=== PATIENT | female | born 1970 | race Caucasian/White ===

== ENCOUNTER 2020-11-27 12:27 | Inpatient (IN) | payer BC, SELFPAY ==
[2020-11-27] VITALS (9 sets, daily range): BP systolic 110–127; BP diastolic 77–88; PULSE 82–89; RESP 16–20; TEMP 36.6–36.9; O2SAT 96–99; BMI 22.4
--- NOTE | 2020-11-27 12:53 | XR_ITS ---
WS: [id number] LEFT FEMUR: 2 VIEW(S) TECHNIQUE: AP and lateral. HISTORY: pain/fall COMPARISON: None available. Acute LEFT subcapital hip fracture slight impaction. The remaining femur is negative. Soft tissues are unremarkable. No foreign body or calcification. XR/XR femur LT min 2V* [id number] Impression: Acute LEFT subcapital hip fracture.
--- NOTE | 2020-11-27 12:53 | XR_ITS ---
WS: [id number] LEFT KNEE: 3 VIEW(S) TECHNIQUE: AP, oblique(s) and lateral. HISTORY: fall/pain COMPARISON: None available. No fracture or dislocation. No joint space narrowing or osteophytes. No joint effusion. No soft tissue abnormality. XR/XR knee LT 3V* [id number] IMPRESSION: Normal LEFT knee.
--- NOTE | 2020-11-27 12:53 | XR_ITS ---
WS: [id number] LEFT HIP HISTORY: pain after fall COMPARISON: None available. LEFT hip: Acute nondisplaced LEFT subcapital hip fracture. Very slight impaction. Mild narrowing of t he hip joint from arthritis. Mild LEFT sacroiliitis. XR/XR hip LT 2-3V wo/w pel* [id number] IMPRESSION: 1. Acute nondisplaced LEFT subcapital hip fracture. 2. Mild LEFT hip joint arthritis.
--- NOTE | 2020-11-27 13:31 | ED_ITS ---
HPI - Fall General: Chief Complaint: Fall Stated Complaint: FALL/ LEG PAIN Time Seen by Provider: 11/27/20 12:43 History of Present Illness: HPI Narrative: 50-year-old female presents ER via EMS. She slipped on some ice had been tracked into the house by her dog she landed on her left hip. She can move some but she is complaining of significant pain both at the hip and at the knee. She denies striking her head no other injuries no loss of consciousness MD complaint: fall Onset (ago): minute(s) Fall from: standing Fall witnessed: no Place fall occurred: home Loss of consciousness: None Prolonged down time: no Symptoms prior to fall: none Context: tripped/slipped Location of injury: other (Left hip) Location of injury - extremities: Left: knee Severity: moderate Associated symptoms-after fall: Denies abdominal pain or chest pain Review of Systems Const: Denies: fever(s), chills, body aches, change in appetite, fatigue or malaise ENMT: Denies: throat pain, ear or mastoid pain, nasal discharge or nasal congestion Card: Denies: chest pain, edema, dyspnea on exertion or orthopnea Resp: Denies: dyspnea, productive cough or non-productive cough GI: Denies: abdominal pain, nausea, vomiting, hematemesis, coffee ground emesis, diarrhea, constipation, bloating, hematochezia or melena : Denies: flank pain, difficulty voiding, dysuria, urinary frequency or urinary urgency Skin/Breast: Denies: rash or pruritus PFSH ED PFSH: Medical History Asthma HTN (hypertension) Surgical History History of Family History Other Diabetes Hypertension Social History Smoking and tobacco status: never smoked Alcohol intake: never Substance/Drug Use: never Lives independently: Yes Household members: spouse Marital status: Current occupational status: employed Current occupation: [employer] supervisor Female Reproductive History: Date of last menstrual period: 03/12/20 Physical Exam Const: COMMON NORMALS: no acute distress GENERAL APPEARANCE: cooperative and comfortable ORIENTATION/CONSCIOUSNESS: Yes awake, Yes oriented to person, Yes oriented to place and Yes oriented to time HENMT: COMMON NORMALS: normocephalic, atraumatic and hearing grossly normal bilaterally HEAD & SCALP: normocephalic and atraumatic Eye: COMMON NORMALS: Equal, round and reactive pupils present, EOMs intact bilaterally, conjunctivae normal and no scleral icterus CONJUNCTIVA: Yes co njunctivae normal PUPIL: Yes Equal, round and reactive pupils present Neck/C-Spine: COMMON NORMALS: full ROM, no lymphadenopathy, supple and no JVD Lymph: LYMPHATIC: no lymphadenopathy noted and no lymphedema noted Resp: COMMON NORMALS: normal respiratory effort, No retractions, No use of accessory muscles and clear to auscultation bilaterally AUSCULTATION: clear to auscultation bilaterally Cardio: COMMON NORMALS: no JVD, regular rate, regular rhythm and No murmurs present (Cardio) RATE: regular rate RHYTHM: regular rhythm GI: COMMON NORMALS: Soft to palpation and No hepatosplenomegaly present AUSCULTATION: Yes normoactive bowel sounds PALPATION: Yes Soft to palpation, No Tenderness to palpation present (GI), No Guarding due to palpation present (GI) and Yes No hepatosplenomegaly present Extremity: NARRATIVE EXTREMITY EXAM: Pain of the right hip with mild external rotation. Neuro: SENSORIUM/ORIENTATION: Yes oriented to person, Yes oriented to place and Yes oriented to time Skin: COMMON NORMALS: no rashes or lesions noted GENERAL SKIN EXAM: no rashes or lesions noted Course Vital Signs: Vital signs: Vital Signs Temperature 99.2 F 11/28/20 14:35 Pulse Rate 85 11/28/20 14:35 Respiratory Rate 18 11/28/20 14:35 Blood Pressure 102/72 11/28/20 14:35 Pulse Oximetry 94 11/28/20 14:35 MDM - Fall MDM Narrative: Medical decision making narrative: Admit for orthopedic evaluation and open reduction internal fixation of the fracture. Discussed with patient also courtney Dr. Moreira and hospitalist orders are written. Lab Data: Labs: Lab Results 11/27/20 11/27/20 Range/Units 14:26 14:26 WBC 20.0 H (4.0-10.0) 10^3/ uL RBC 4.90 (4.1-5.3) 10^6/u L Hgb 14.8 (11.5-15.3) g/dL Hct 45.7 (37.0-47.0) % MCV 93.3 (81-99) fL MCH 30.2 (28.0-34.0) pg MCHC 32.4 (30.0-36.0) g/dL RDW 14.2 (12.1-15.1) % Plt Count 391 (130-400) 10^3/c mm MPV 9.3 (7.4-10.4) fL Neut % (Auto) 90.6 % Lymph % (Auto) 4.9 % [place] % (Auto) 3.7 % Eos % (Auto) 0.1 % Baso % (Auto) 0.2 % Neut # (Auto) 18.10 H (1.8-7.7) 10^3/u L Lymph # (Auto) 1.0 (0.8-4.8) 10^3/u L [place] # (Auto) 0.7 (0.2-0.9) 10^3/u L Eos # (Auto) 0.0 (0.0-0.8) 10^3/u L Baso # (Auto) 0.0 (0.0-0.1) 10^3/u L Nucleated RBC % (a uto) 0 % Nucleated RBCs # 0.0 /100WBC Sodium 140 (136-145) mmol/L Potassium 3.3 L (3.5-5.1) mmol/L Chloride 104 (98-107) mmol/L Carbon Dioxide 25 (22-29) mmol/L Anion Gap 14.3 (5-19) BUN 9 (6-20) mg/dL Creatinine 0.6 (0.5-0.9) mg/dL GFR Calculation 105.8 (90-130) mL/min Glucose 108 (65-115) mg/dL Calculated Osmolal ity 289 (285-295) mOsm/k g Calcium 10.0 (8.5-10.5) mg/dL Total Bilirubin 0.4 (0.15-1.2) mg/dL AST 22 (0-32) U/L ALT 25 (0-33) U/L Alkaline Phosphata se 133 H (35-105) IU/L Total Protein 7.5 (6.6-8.7) g/dL Albumin 4.6 (3.5-5.2) g/dL Globulin 2.9 (1.3-4.6) g/dL Discharge Plan Discharge Admit Provider: Vini Carbajal Clinical Impression: Subcapital fracture of left hip, HTN (hypertension), Asthma Condition: Stable Discharge Orders: Discharge Order (Routine); Ordered 11/28/20 Ordered By: Vini Carbajal Discharge Diet: Cardiac Discharge Activity: Increase activity as tolerated, Limit activity as instructed and As per PT/OT instructions Coding Level of Care Code ED Med Spec for David Souza
--- NOTE | 2020-11-27 13:41 | XR_ITS ---
WS: [id number] PORTABLE CHEST HISTORY: dyspnea/cough COMPARISON: None available. Lungs are clear and well expanded. No pleural effusion or pneumothorax. Cardiac size: Normal. Mediastinum/Aorta: Normal mediastinum. No osseous abnormality seen. XR/XR chest 1V portable [id number] IMPRESSION: Unremarkable portable chest.
--- NOTE | 2020-11-27 13:41 | ECG_ITS ---
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
--- NOTE | 2020-11-27 14:12 | PC.NURSE ---
radiology at bedside.
[2020-11-27 14:36] LABS: Basophils % 0.2 %; Eosinophils % 0.1 %; Hematocrit 45.7 % (37.0-47.0); Hemoglobin 14.8 g/dL (11.5-15.3); Lymphocytes % 4.9 %; Mean Corpuscular HGB Conc 32.4 g/dL (30.0-36.0); Mean Corpuscular Hemoglobin 30.2 pg (28.0-34.0); Mean Corpuscular Volume 93.3 fL (81-99); Mean Platelet Volume 9.3 fL (7.4-10.4); Monocytes # 0.7 10^3/uL (0.2-0.9); Monocytes % 3.7 %; Neutrophils % 90.6 %; Nucleated Red Blood Cells % 0 %; Platelet Count 391 10^3/cmm (130-400); Red Cell Distribution Width 14.2 % (12.1-15.1)
[2020-11-27] MEDS: ondansetron 2 mg/ML SDV 2 mL 4 MG IVP ×2 (14:42→18:51)
[2020-11-27] MEDS: morphine 4 mg/mL SDV 1 mL IVP (14:43)
[2020-11-27 14:59] LABS: Alanine Aminotransferase 25 U/L (0-33); Albumin Level 4.6 g/dL (3.5-5.2); Alkaline Phosphatase 133 IU/L (35-105); Anion Gap 14.3 (5-19); Aspartate Amino Transferase 22 U/L (0-32); Blood Urea Nitrogen 9 mg/dL (6-20); Carbon Dioxide 25 mmol/L (22-29); Chloride 104 mmol/L (98-107); Globulin 2.9 g/dL (1.3-4.6); Glomerular Filtration Rate 105.8 mL/min (90-130); Glucose 108 mg/dL (65-115); Osmolality Calculated 289 mOsm/kg (285-295); Potassium 3.3 mmol/L (3.5-5.1); Sodium 140 mmol/L (136-145); Total Bilirubin 0.4 mg/dL (0.15-1.2); Total Protein 7.5 g/dL (6.6-8.7)
--- NOTE | 2020-11-27 16:40 | PM.HP ---
Providers/Chief Complaint Admitting Physician: Vini Carbajal Primary Care Provider: Karly Briscoe, Chief Complaint: FALL/ LEG PAIN History of Present Illness Very pleasant 50-year-old lady with history of asthma, HTN, at baseline state of health, slipped down walking some stairs 3 weeks ago, landing on her left leg/hip. This was sore for a while, but she was able to ambulate, and symptoms gradually were improving. She then today placed some ice cubes at home for her dogs, and later walking in the same area slipped on some ice water again landing on the same leg/hip. In ER she is found to have acute left subcapital hip fracture. She is being admitted for assessment and repair of this. Review of Systems Const: Denies: fever(s), chills, body aches or malaise Eyes: Denies: change in vision or eye redness ENMT: Denies: throat pain, oral sores or ear or mastoid pain Card: Denies: chest pain, edema, pre-syncope or dyspnea on exertion Resp: Denies: dyspnea, productive cough, change in phlegm color or hemoptysis GI: Denies: abdominal pain, nausea, vomiting, diarrhea, constipation, hematochezia or melena : Denies: flank pain, urinary frequency or hematuria Musc: Denies: back pain, joint swelling or joint redness Skin/Breast: Denies: rash, sores or new lesions Neuro: Denies: headache(s), numbness in extremities, weakness in extremities, dizziness, confusion or seizure-like activity Endo: Denies: polyuria or polydipsia Jonn/Lymph: Denies: easy bleeding or purpura All/Imm: Denies: urticaria, throat swelling or tongue swelling Medications/Allergies Home Medications Medication Instructions Recorded Confirmed Last Taken Type albuterol sulfate [ProAir HFA] 2 puff INHALATION Q6H PRN 11/27/20 11/27/20 Unknown History budesonide-formoterol [Symbicort] 2 puff INHALATION Q12H 11/27/20 11/27/20 11/27/20 History buspirone See Rx Instructions .ROUTE .COMPLEX 11/27/20 11/27/20 11/27/20 History hydrochlorothiazide 12.5 mg PO DAILY@0700 0211/27/20 11/27/20 History lisinopril 10 mg PO DAILY@0700 11/27/20 11/27/20 11/27/20 History zafirlukast 20 mg PO BID@0700,1900 11/27/20 11/27/20 11/27/20 History Allergies Allergy/AdvReac Type Severity Reaction Status Date / Time azithromycin Allergy Unknown Verified 11/27/20 15:17 PFSH Acute PFSH: Medical History Asthma HTN (hypertension) Surgical History (Updated 11/27/20 @ 16:42 by Vini Carbajal MD) History of Family History Other Diabetes Hypertension Social History Smoking and tobacco status: never smoked Alcohol intake: never Substance/Drug Use: never Lives independently: Yes Household members: spouse Marital status: Current occupational status: employed Current occupation: [employer] Female Reproductive History: Date of last menstrual period: 03/12/20 Vitals/I&O/Wt Last Vital Signs Temp 98.4 F 11/27/20 12:34 Pulse 84 11/27/20 13:03 Resp 18 11/27/20 14:43 BP 126/84 11/27/20 13:03 Pulse Ox 99 11/27/20 13:03 Weight last 48 hrs Weight 63.049 kg Physical Exam Narrative: EXAM NARRATIVE: accompanying her in her room. Const: COMMON NORMALS: no acute distress and patient oriented x3 HENMT: COMMON NORMALS: oropharynx normal Neck/C-Spine: COMMON NORMALS: no JVD Resp: COMMON NORMALS: normal respiratory effort and clear to auscultation bilaterally AUSCULTATION: clear to auscultation bilaterally Cardio: COMMON NORMALS: no JVD, regular rhythm, S1 normal heart sound present, S2 normal heart sound present and No murmurs present (Cardio) RHYTHM: regular rhythm HEART SOUNDS: S1 normal heart sound present and S2 normal heart sound present GI: COMMON NORMALS: Normal to inspection, nondistended, normoactive bowel sounds present, Soft to palpation and non-tender PALPATION: Yes Soft to palpation Extremity: COMMON NORMALS: no joint enlargement and no pedal edema OTHER: Left hip, did not notice much swelling, bruising, no erythema. She has pain on movement. Left lower extremity perfused. Neuro: COMMON NORMALS: patient oriented x3 and moves all extremities Skin: COMMON NORMALS: no rashes or lesions noted GENERAL SKIN EXAM: no rashes or lesions noted Urinary Catheter Management^: [place]: Cath Placed During This Visit: yes Urinary Catheter Date of Insertion: 11/27/20 Urinary Catheter Time of Insertion: 16: Data : 11/27/20 14:26 11/27/20 14:26 A&P Assessment and plan (1) Subcapital fracture of left hip: Orthopedic surgery planning repair likely tomorrow. Should have average risk of surgery. Stable asthma without exacerbation. She is active, ambulates without issue, takes flights of stairs. She is wanting to have her hip repaired. N.p.o. after midnight. With anticipated surgery, requesting COVID-19 PCR. Status: Acute (2) Asthma: Continue inhalers. History of steroid use in the past. Follow-up with PCP. Discussed with her to consider bone mineral density scanning after recovers from acute episode of illness. Status: Acute (3) HTN (hypertension): Monitor blood pressure. For now hold off HCTZ, lisinopril. Status: Acute Additional A&P Information Mild hypokalemia: 20 mg potassium by mouth. Attestations Medical Necessity Statement*: Admission of over 2 midnights is going to be needed for assessment of management of left hip fracture. Coding Level of Care Code Acute Licensed Audiologist for David Souza Diagnoses Subcapital fracture of left hip S72.012A Asthma J45.909 HTN (hypertension) I10
[2020-11-27 16:56] LABS: Add Urine Microscopic? NO
[2020-11-27 17:04] LABS: Bilirubin Urine Neg (Negative); Blood Urine Neg (Negative); Glucose Urine UA Norm (Normal); Ketones Urine Negative (Negative); Leukocyte Esterase Urine Negative (Negative); Nitrate Urine Negative (Negative); Protein Urine Neg (Negative); Specific Gravity, Urine 1.005 (1.005-1.030); Urine Appearance Clear (CLEAR); Urine Color Yellow (Yellow); Urobilinogen Urine Norm (Negative); pH Urine 6 (5-7)
[2020-11-27] MEDS: D5-NS 0.45% + KCL 20 mEq 20 MEQ/1,000 ML BAG 100 MEQ IV (18:20)
[2020-11-27] MEDS: potassium chloride ER 20 mEq Tablet PO (18:21)
[2020-11-27] MEDS: morphine 4 mg/mL SDV 1 mL 2 MG IVP (18:51)
[2020-11-28] VITALS (14 sets, daily range): BP systolic 102–129; BP diastolic 66–79; PULSE 65–114; RESP 16–88; TEMP 36.4–37.6; O2SAT 94–100
--- NOTE | 2020-11-28 | XR_ITS ---
WS: [id number] C-ARM RADIOGRAPHS LEFT HIP; 3 IMAGES HISTORY: OR PICS COMPARISON: 11/27/2020 3 screws stabilize a LEFT femoral neck fracture. Femoral fracture in good position and alignment. XR/XR hip LT 2-3V wo/w pel* [id number] IMPRESSION: Intraoperative imaging during screw fixation femoral neck fracture.
--- NOTE | 2020-11-28 | SCC_ITS ---
Procedure Done: Left hip closed reduction percutaneous pinning 82 seconds of fluoroscopic guidance, for a cumulative dose of 12.09 mGy, was provided to Dr. Moreira by the radiology department. C-arm images of the LEFT hip were saved for the patient's permanent record. [facility]
[2020-11-28] MEDS: D5-NS 0.45% + KCL 20 mEq 20 MEQ/1,000 ML BAG 100 MEQ IV (04:46)
[2020-11-28 06:17] LABS: Basophils % 0.3 %; Eosinophils % 0.5 %; Hematocrit 42.5 % (37.0-47.0); Hemoglobin 13.4 g/dL (11.5-15.3); Lymphocytes # 1.7 10^3/uL (0.8-4.8); Lymphocytes % 19.4 %; Mean Corpuscular HGB Conc 31.5 g/dL (30.0-36.0); Mean Corpuscular Hemoglobin 30.5 pg (28.0-34.0); Mean Corpuscular Volume 96.6 fL (81-99); Mean Platelet Volume 9.6 fL (7.4-10.4); Monocytes # 0.6 10^3/uL (0.2-0.9); Monocytes % 7.4 %; Neutrophils # 6.22 10^3/uL (1.8-7.7); Neutrophils % 71.9 %; Nucleated Red Blood Cells % 0 %; Platelet Count 328 10^3/cmm (130-400); Red Cell Distribution Width 14.5 % (12.1-15.1); White Blood Count 8.7 10^3/uL (4.0-10.0)
[2020-11-28 06:34] LABS: Alanine Aminotransferase 20 U/L (0-33); Albumin Level 3.8 g/dL (3.5-5.2); Alkaline Phosphatase 105 IU/L (35-105); Anion Gap 11.7 (5-19); Aspartate Amino Transferase 16 U/L (0-32); Blood Urea Nitrogen 6 mg/dL (6-20); Calcium 8.8 mg/dL (8.5-10.5); Carbon Dioxide 27 mmol/L (22-29); Chloride 104 mmol/L (98-107); Globulin 2.4 g/dL (1.3-4.6); Glomerular Filtration Rate 88.6 mL/min (90-130); Glucose 106 mg/dL (65-115); Osmolality Calculated 286 mOsm/kg (285-295); Potassium 3.7 mmol/L (3.5-5.1); Sodium 139 mmol/L (136-145); Total Bilirubin 0.7 mg/dL (0.15-1.2); Total Protein 6.2 g/dL (6.6-8.7)
--- NOTE | 2020-11-28 06:50 | PM.CONSULT ---
Providers/Reason For Consult Consulting Physican/Specialty*: orthopedics Reason for Consult*: hip fx Attending Physician: Vini Carbajal Primary Care Provider: Karly Briscoe, History of Present Illness History of Present Illness Araceli Parks is a 50 year old female with history of asthma, HTN, at baseline state of health, slipped down walking some stairs 3 weeks ago, landing on her left leg/hip. This was sore for a while, but she was able to ambulate, and symptoms gradually were improving. She then today placed some ice cubes at home for her dogs, and later walking in the same area slipped on some ice water again landing on the same leg/hip. In ER she is found to have acute left subcapital hip fracture. Review of Systems Const: Denies: fever(s), chills, body aches or malaise Eyes: Denies: change in vision or eye redness ENMT: Denies: throat pain, oral sores or ear or mastoid pain Card: Denies: chest pain, edema, pre-syncope or dyspnea on exertion Resp: Denies: dyspnea, productive cough, change in phlegm color or hemoptysis GI: Denies: abdominal pain, nausea, vomiting, diarrhea, constipation, hematochezia or melena : Denies: flank pain, urinary frequency or hematuria Musc: Denies: back pain, joint swelling or joint redness Skin/Breast: Denies: rash, sores or new lesions Neuro: Denies: headache(s), numbness in extremities, weakness in extremities, dizziness, confusion or seizure-like activity Endo: Denies: polyuria or polydipsia Jonn/Lymph: Denies: easy bleeding or purpura All/Imm: Denies: urticaria, throat swelling or tongue swelling Meds/Allergies Home Medications and Allergies Home Medications Medication Instructions Recorded Confirmed Last Taken Type albuterol sulfate [ProAir HFA] 2 puff INHALATION Q6H PRN 11/27/20 11/27/20 Unknown History budesonide-formoterol [Symbicort] 2 puff INHALATION Q12H 11/27/20 11/27/20 11/27/20 History buspirone See Rx Instructions .ROUTE .COMPLEX 11/27/20 11/27/20 11/27/20 History hydrochlorothiazide 12.5 mg PO DAILY@0700 02/18/21 02/18/21 02/18/21 History lisinopril 10 mg PO DAILY@0700 11/27/20 11/27/20 11/27/20 History zafirlukast 20 mg PO BID@0700,1900 11/27/20 11/27/20 11/27/20 History Allergies Allergy/AdvReac Type Severity Reaction Status Date / Time azithromycin Allergy ADR-Abdominal Verified 11/27/20 18:27 Pain Sulfa (Sulfonamide Allergy ADR-Itching Verified 11/27/20 18:27 Antibiotics) Current Medications Current Medications Generic Name Dose Route Start Last Admin Trade Name Freq PRN Reason Stop Dose Admin Potassium Chloride/Dextrose/Sod Cl 20 meq in 1,000 mls @ 100 mls/hr 11/27/20 17:17 11/28/20 04:46 D5-Ns 0.45% + Kcl 20 Meq IV 100 mls/hr .Q10H BHARATH Administration Morphine Sulfate 2 mg 11/27/20 17:17 11/27/20 18:51 Morphine 4 Mg/Ml Sdv 1 Ml IVP 2 mg Q4H PRN Administration SEVERE PAIN Ondansetron HCl 4 mg 11/27/20 17:17 11/27/20 18:51 Ondansetron 2 Mg/Ml Sdv 2 Ml IVP 4 mg Q6H PRN Administration NAUSEA AND VOMITING Fluticasone/Salmeterol 1 puff 11/27/20 20:00 11/27/20 22:44 Fluticasone-Salmeterol 500-50 Diskus INHALATION 1 puff BID.RESPIRATORY BHARATH Administration PFSH Acute PFSH: Medical History (Updated 11/27/20 @ 18:41 by Aarti Albright RN) Asthma HTN (hypertension) Surgical History History of Family History Other Diabetes Hypertension Social History Smoking and tobacco status: never smoked Alcohol intake: never Substance/Drug Use: never Lives independently: Yes Household members: spouse Marital status: Current occupational status: employed Current occupation: [employer] Female Reproductive History: Date of last menstrual period: 03/12/20 Vitals/I&O/Wt Last Vital Signs Temp 98.6 F 11/28/20 06:38 Pulse 90 11/28/20 06:38 Resp 88 H 11/28/20 06:38 BP 124/79 11/28/20 06:38 Pulse Ox 96 11/28/20 06:38 11/27/20 11/27/20 11/28/20 14:59 22:59 06:59 Intake Total 120 / 120 1000 / 1120 Output Total 450 / 450 550 / 1000 Balance -330 / -330 450 / 120 Weight last 48 hrs Weight 139 lb Physical Exam Narrative: EXAM NARRATIVE: CONSTITUTIONAL: The patient is a normal appearing [] in no apparent distress. GENERAL: Patient in no acute distress. CARDIAC: Regular rate and rhythm. CHEST: Normal inspiratory effort, normal respiratory rate. ABDOMEN: Soft and nontender. SKIN: Clear, warm and intact. NEURO?PSYCH: The patient is alert and oriented to person, place and time. Sensorv /SILT Motor StrengthShoulder abduction C5 5/5Wrist extension C6 5/5Elbow extension C7 5/5Hand Cell Stripper C8 5/5Finger abduction T15/5 Radial/ Ulnar/ Median n intact LowerSensory (SILT)Motor StrengthHin flexion L2/3Ant/inner thigh 5/5Hip adduction L2/3 5/5Knee extension L4 Lat thigh, 5/5Toe dorsiflexion L5 5/5Ankle dorsiflexion L5/ G10Hhsrspu flexion S1 5/5 DTRBleeps 2+Triceps 2+Brachioradialis 2+Patellar 2+Achilles 2+ MUSCULOSKELETAL: UPPEREXTREMITIES: The patient had full active ROM in fingers, wrist, elbow, and shoulder. The patient demonstrated ability to fully flex/extend/abduct/adduct fingers, make ok sign, cross 2nd/3rd digits, extend 1st digit fully.. Radial pulse 2+, CR<2 seconds. LOWER EXTREMITIES: Pt has full, active ROM of toes, ankle, knee, and hip. Dorsalis pedis/posterior tibialis pulses 2+, CR<2 seconds. SPINE: Skin warm, dry, intact Urinary Catheter Management^: [place]: Cath Placed During This Visit: yes Reason for Continuing Indwelling Catheter: Other Urinary Catheter Date of Insertion: 11/27/20 Urinary Catheter Time of Insertion: 16:26 A&P Additional A&P Information Left femoral neck fx CRPP today Coding Level of Care Code Acute Bag Adjuster for David Souza
--- NOTE | 2020-11-28 06:53 | P.ANESASSM_ITS ---
Pre-Anesthetic Assessment Pre-Anesthetic Assessment: Height/Weight: Height 1.68 m Weight 63.049 kg Temp Pulse Resp BP Pulse Ox 98.6 F 90 88 H 124/79 96 11/28/20 06:38 11/28/20 06:38 11/28/20 06:38 11/28/20 06:38 11/28/20 06:38 Preop Diagnosis: left femoral neck fracture Proposed Procedure: Operation Date: 11/28/20 07:00 Proposed Procedures p Hip Screw(Left) - Kolby H Lillie, DO Familial anesthetic complications: None Was Beta Amanda taken within 24 hours: N/A Last intake: Intake Last Liquid Date 11/27/20 Last Liquid Time 23:00 Last Solid Date 11/27/20 Last Solid Time 23:00 Social: Social History: No alcohol and No tobacco Exam: Pre-Anes Outpt Exam: alert, oriented x 3, clear to auscultation bilaterally and regular rate & rhythm Airway: Cervical ROM: WNL MP: 3 Dentition: False Pulmonary: Pulmonary: Asthma (under control) CV/HEM: CV/HEM: HTN Anesthetic Plan: ASA status: 2 Anesthesia: General Risk of > 500 ml blood loss (7ml/kg in children): No Meds/Allergies Current Medications: Current Medications Generic Name Dose Route Start Last Admin Trade Name Freq PRN Reason Stop Dose Admin Potassium Chloride /Dextrose/Sod Cl 20 meq in 1,000 m ls @ 100 mls/hr 11/27/20 17:17 11/28/20 04:46 D5-Ns 0.45% + Onel l 20 Meq IV 100 mls/hr .Q10H BHARATH Administration Morphine Sulfate 2 mg 11/27/20 17:17 11/27/20 18:51 Morphine 4 Mg/Ml Sdv 1 Ml IVP 2 mg Q4H PRN Administration SEVERE PAIN Ondansetron HCl 4 mg 11/27/20 17:17 11/27/20 18:51 Ondansetron 2 Mg /Ml Sdv 2 Ml IVP 4 mg Q6H PRN Administration NAUSEA AND VOMITI NG Fluticasone/Salmet araceli 1 puff 11/27/20 20:00 11/27/20 22:44 Fluticasone-Salm eterol 500-50 Disk us INHALATION 1 puff BID.RESPIRATORY S CH Administration PFSH Anesthesia PFSH: Medical History (Updated 11/27/20 @ 18:41 by Aarti Albright RN) Asthma HTN (hypertension) Surgical History History of Family History Other Diabetes Hypertension Social History Smoking and tobacco status: never smoked Alcohol intake: never Substance/Drug Use: never Lives independently: Yes Household members: spouse Marital status: Current occupational status: employed Current occupation: [employer] Female Reproductive History: Date of last menstrual period: 03/12/20 Data Anesthesia CBC & Chem 7: 11/28/20 05:17 11/28/20 05:17 Other Labs: Laboratory Results - last 48 hr 11/27/20 11/27/20 11/27/20 14:26 14:26 16:20 WBC 20.0 H RBC 4.90 Hgb 14.8 Hct 45.7 MCV 93.3 MCH 30.2 MCHC 32.4 RDW 14.2 Plt Count 391 MPV 9.3 Neut % (Auto) 90.6 Lymph % (Auto) 4.9 [place] % (Auto) 3.7 Eos % (Auto) 0.1 Baso % (Auto) 0.2 Neut # (Auto) 18.10 H Lymph # (Auto) 1.0 [place] # (Auto) 0.7 Eos # (Auto) 0.0 Baso # (Auto) 0.0 Nucleated RBC % (auto) 0 Nucleated RBCs # 0.0 Sodium 140 Potassium 3.3 L Chloride 104 Carbon Dioxide 25 Anion Gap 14.3 BUN 9 Creatinine 0.6 GFR Calculation 105.8 Glucose 108 Calculated Osmolality 289 Calcium 10.0 Total Bilirubin 0.4 AST 22 ALT 25 Alkaline Phosphatase 133 H Total Protein 7.5 Albumin 4.6 Globulin 2.9 Urine Color Yellow Urine Appearance Clear Urine pH 6 Ur Specific [place] 1.005 Urine Protein Neg Urine Glucose (UA) Norm Urine Ketones Negative Urine Blood Neg Urine Nitrate Negative Urine Bilirubin Neg Urine Urobilinogen Norm Ur Leukocyte Esterase Negative 11/28/20 11/28/20 05:17 05:17 WBC 8.7 RBC 4.40 Hgb 13.4 Hct 42.5 MCV 96.6 MCH 30.5 MCHC 31.5 RDW 14.5 Plt Count 328 MPV 9.6 Neut % (Auto) 71.9 Lymph % (Auto) 19.4 [place] % (Auto) 7.4 Eos % (Auto) 0.5 Baso % (Auto) 0.3 Neut # (Auto) 6.22 Lymph # (Auto) 1.7 [place] # (Auto) 0.6 Eos # (Auto) 0.0 Baso # (Auto) 0.0 Nucleated RBC % (auto) 0 Nucleated RBCs # 0.0 Sodium 139 Potassium 3.7 Chloride 104 Carbon Dioxide 27 Anion Gap 11.7 BUN 6 Creatinine 0.7 GFR Calculation 88.6 L Glucose 106 Calculated Osmolality 286 Calcium 8.8 Total Bilirubin 0.7 AST 16 ALT 20 Alkaline Phosphatase 105 Total Protein 6.2 L Albumin 3.8 Globulin 2.4 Urine Color Urine Appearance Urine pH Ur Specific [place] Urine Protein Urine Glucose (UA) Urine Ketones Urine Blood Urine Nitrate Urine Bilirubin Urine Urobilinogen Ur Leukocyte Esterase Cardiac Studies: No Data to Display
--- NOTE | 2020-11-28 06:54 | W.PM.OPSUD ---
Surgery/Procedure H&P Update DATE OF PROCEDURE: November 28, 2020 DATE H&P PERFORMED: 11/28/20 H&P UPDATE INFORMATION: I have reviewed H&P completed within last 30 days PREOP DIAGNOSIS: left femoral neck fracture PLANNED PROCEDURE: Operation Date: 11/28/20 07:00 Proposed Procedures p Hip Screw(Left) - Kolby Moreira DO
[2020-11-28] MEDS: sodium chloride 0.9% 1,000 ML 30 ML IV (07:00)
[2020-11-28] MEDS: scopolamine 1.5 Patch 1 PATCH TRANSDERMA (07:09)
[2020-11-28 07:12] LABS: OR HCG Qualitative Urine Negative (Negative)
--- NOTE | 2020-11-28 08:10 | PM.OP ---
Operative Report Date of procedure: November 28, 2020 Pre-op Diagnosis: left femoral neck fracture Post-op diagnosis: same Procedure Done: Left hip closed reduction percutaneous pinning Surgeon: Kolby Moreira Anesthesia: General Estimated blood loss (mL): 5 Condition: stable Disposition: PACU Procedure: Patient had a left femoral neck closed reduction percutaneous pinning. Patient was brought to the operative suite after undergoing spinal anesthesia was placed onto the fracture table. All areas impingement well-padded. Fracture was in good position on AP lateral fluoroscopy. Patient was then prepped and draped in normal sterile fashion. Skin incision made in the area of the greater trochanter and lesser trochanter. Laterally. Starting wire was inserted on the inferior aspect of the femoral neck. This pin was driven into where it just abutted onto the subchondral bone of the inferior center portion of the femoral head. Next a another wire was placed anterior superior along the femoral neck fracture. And then another wire was placed posterior superior along the femoral neck. AP lateral fluoroscopy ensured that the pins did not penetrate through the subchondral bone and were in appropriate position abutting the borders of the femoral neck. Then the near cortex was drilled for all 3 screws. Then the screws were measured a partially-threaded screw was placed on the inferior screw. And then to fill a prescription for threaded screws were placed on the superior portion. These are 6 5 cannulated screws from [place]. AP lateral fluoroscopy ensured the screws and fracture in appropriate position. Wounds were irrigated and closed with Vicryl and nylon suture. Sterile dressing was applied and patient was transferred to the PACU in stable condition.
--- NOTE | 2020-11-28 08:24 | SUR.PHASEI ---
PT AWAKE AELRT ON ARRIVAL TO PACU PT WAS A SPINAL , PT STATES NORMAL SESATION AT T-12 PT IS ABLE TO MOVE BILAT TOES
--- NOTE | 2020-11-28 08:26 | P.PN_ITS ---
Subjective Subjective: Interval history: patient doing well post op She can WBAT. If she has pain controlled OK to D/C today from orthopedic standpoint Vitals/I&O/Wt Last Vital Signs Temp 97.6 F 11/28/20 08:13 Pulse 84 11/28/20 08:20 Resp 18 11/28/20 08:20 BP 116/77 11/28/20 08:20 Pulse Ox 98 11/28/20 08:20 11/27/20 11/28/20 11/28/20 22:59 06:59 14:59 Intake Total 120 / 120 1000 / 1120 1050 / 1050 Output Total 450 / 450 550 / 1000 0 / 0 Balance -330 / -330 450 / 120 1050 / 1050 Weight last 48 hrs Weight 139 lb Physical Exam Urinary Catheter Management^: [place]: Cath Placed During This Visit: yes Reason for Continuing Indwelling Catheter: Other Urinary Catheter Date of Insertion: 11/27/20 Urinary Catheter Time of Insertion: 16:26 Data : 11/28/20 05:17 11/28/20 05:17 A&P Additional A&P Information WBAT OK to D/C today if patient is able to ambulate and pain controlled Attestations Medical Necessity Statement*: OK to d/c today if patient able to get up and ambulate and pain is controlled Coding Level of Care Code Acute Environmental Health Inspector for David Souza
--- NOTE | 2020-11-28 11:31 | PC.NURSE ---
per Dr. Carbajal advance diet to cardiac for lunch
[2020-11-28] MEDS: ketorolac 30 mg/mL INJ IVP (12:19)
--- NOTE | 2020-11-28 12:52 | ANE.PACU2 ---
Inpatient post-anesthesia follow up: Airway intact: Yes Vital signs: Temperature 99.7 F Pulse Rate [Monito r] 89 Pulse Rate 68 Respiratory Rate 18 Blood Pressure [Ri ght Arm] 125/88 Blood Pressure 111/72 Pulse Oximetry 98 Oxygen Delivery Me thod Room Air Oxygen Flow Rate Fraction of Inspir ed Oxygen Hydration adequate: Yes Nausea and vomiting: No Pain level: 2 Mental status: Baseline
--- NOTE | 2020-11-28 13:31 | PC.CHAP ---
Pastoral Care Encounter/Spiritual Assessment Type of Contact [] Declined cupboard builder visit [] Patient/Family/Request visit [] Outpatient visit [] Follow-up visit [] Physician referral [] Code/Alert [xx] Routine visit [] Staff referral [] Actively dying [] Patient sleeping [] Family support [] [] Out of room [] Palliative care [] [] Receiving care in room [] Pre-surgical visit [] Trauma [] Long length of stay [] ICU visit [] Other: Relational/Emotional Strength [xx] Patient feels connected with others/family/visitors/staff [] Distress [] Loneliness/isolation [] Abandonment Spirituality of Patient [xx] Person of Lissette [xx] Attends Faith of their Lissette [xx] Believes in Prayer [xx] Reads Bible or Cheondoism materials [] There are Spiritual issues to be addressed Crime Lab Technician Interventions [xx] Prayer [xx] Active listening [xx] Non-anxious presence [] Spiritual/emotional support [] Crisis/trauma care [] Spiritual counseling [] Bereavement support [] Provided bereavement packet [xx] Provided Bible/devotional materials [] Provided toy/stuffed animal, coloring book to patient or family member [] Provided Communion [] Anointing/[place] [] Salvation [xx] Completed spiritual assessment [] Other: Impact on Illness or Injury [] Angry [] Fearful [] Anxious [] Often cries [] Exhaustion [] Unable to work [] Unable to attend baptism [] Unable to walk/stand [] Unable to read [] Unable to drive [] Unable to eat/drink [] Unable to sleep [] Unable to be with family [] Patient intubated [] Other: Summary [employer] devotional given to patient. Patient feeling great after hip surgery. Patient thanking God she fell indoors and not outdoors in subfreezing temperatures where she might not have been found in time. Time spent with patient 17 minutes
--- NOTE | 2020-11-28 14:41 | P.DS_ITS ---
Discharge Providers Date of Admission: 11/27/20 14:40 Date of Discharge: November 28, 2020 Attending Provider at Admission: Vini Carbajal Attending Provider at Discharge: Vini Carbajal Primary Care Provider: Karly Briscoe, Diagnoses at Discharge Discharge Diagnosis (1) Subcapital fracture of left hip: Status: Acute (2) Asthma: Status: Acute (3) HTN (hypertension): Status: Acute Reason for Visit Reason for Visit: FALL/ LEG PAIN Hospital Course Hospital Course Very pleasant 50-year-old lady former employee at [employer], where she used to work as a, without much past medical history, with history of asthma, hypertension, had slipped walking down some stairs and fell on her left hip about 3 weeks ago, although this did not appear to bother her much, however, day of admission she slipped accidentally again on some ice which she had laid down for her dogs in her kitchen and landed again on the same hip, this time with severe pain, and with finding of acute left subcapital hip fracture on imaging in ER. Hip and pelvis x-rays showed the same. Knee x-ray was unremarkable. Chest x-ray unremarkable. Her asthma has been stable recently. Blood pressure is well controlled. She underwent uneventful left hip closed reduction and percutaneous pinning. Her pain has been under control. She mobilized well with physical therapy after surgery. As such she is cleared for discharge by orthopedics, with instructions to maintain dressing in place, aspirin 325 mg daily for VT prophylaxis, and follow-up in clinic. She is instructed on strict fall precautions. She is asked to discuss with her primary care provider referral for bone mineral density testing given asthma and history of recurrent use of steroids. Physical Exam Narrative: EXAM NARRATIVE: She ambulated well with PT. Const: COMMON NORMALS: no acute distress and patient oriented x3 OTHER: Awake, alert, in great spirits. HENMT: COMMON NORMALS: oropharynx normal Neck/C-Spine: COMMON NORMALS: no JVD Resp: COMMON NORMALS: normal respiratory effort and clear to auscultation bilaterally AUSCULTATION: clear to auscultation bilaterally Cardio: COMMON NORMALS: no JVD, regular rhythm, S1 normal heart sound present, S2 normal heart sound present and No murmurs present (Cardio) RHYTHM: regular rhythm HEART SOUNDS: S1 normal heart sound present and S2 normal heart sound present GI: COMMON NORMALS: Normal to inspection, nondistended, normoactive bowel sounds present, Soft to palpation and non-tender PALPATION: Yes Soft to palpation Extremity: COMMON NORMALS: no joint enlargement and no pedal edema OTHER: Clean dressing on lateral left thigh. No bruising, bleeding or discharge. Left lower extremity perfused. Neuro: COMMON NORMALS: patient oriented x3 and moves all extremities Skin: COMMON NORMALS: no rashes or lesions noted GENERAL SKIN EXAM: no rashes or lesions noted Urinary Catheter Management^: [place]: Cath Placed During This Visit: yes Reason for Continuing Indwelling Catheter: Other Urinary Catheter Date of Insertion: 11/27/20 Urinary Catheter Time of Insertion: 16:26 Discharge Data Data Completed and Pending: Completed Studies During Hospitalization Category Date Time Status XR chest 1V robert ble [id number] Stat Exams 11/27/20 13:41 Completed XR femur LT min 2 V* [id number] Stat Exams 11/27/20 12:53 Completed XR hip LT 2-3V wo /w pel* [id number] Rout ine Exams 11/28/20 Completed XR hip LT 2-3V wo /w pel* [id number] Stat Exams 11/27/20 12:53 Completed XR knee LT 3V* [id number] Stat Exams 11/27/20 12:53 Completed Pending at discharge Category Date Time Status C-arm Fluoroscopy [id number] Routine Exams 11/28/20 06:48 Taken Coronavirus Lab T est PTC Routine Lab 11/27/20 17:19 Received Labs from last 24 hours 11/28/20 11/28/20 11/28/20 07:11 05:17 05:17 WBC 8.7 RBC 4.40 Hgb 13.4 Hct 42.5 MCV 96.6 MCH 30.5 MCHC 31.5 RDW 14.5 Plt Count 328 MPV 9.6 Neut % (Auto) 71.9 Lymph % (Auto) 19.4 [place] % (Auto) 7.4 Eos % (Auto) 0.5 Baso % (Auto) 0.3 Neut # (Auto) 6.22 Lymph # (Auto) 1.7 [place] # (Auto) 0.6 Eos # (Auto) 0.0 Baso # (Auto) 0.0 Nucleated RBC % (a uto) 0 Nucleated RBCs # 0.0 Sodium 139 Potassium 3.7 Chloride 104 Carbon Dioxide 27 Anion Gap 11.7 BUN 6 Creatinine 0.7 GFR Calculation 88.6 L Glucose 106 Calculated Osmolal ity 286 Calcium 8.8 Total Bilirubin 0.7 AST 16 ALT 20 Alkaline Phosphata se 105 Total Protein 6.2 L Albumin 3.8 Globulin 2.4 Urine Color Urine Appearance Urine pH Ur Specific Gravit y Urine Protein Urine Glucose (UA) Urine Ketones Urine Blood Urine Nitrate Urine Bilirubin Urine Urobilinogen Ur Leukocyte Deja ase Urine HCG, Qual Negative Nasal/Oral COVID-1 9 PCR 11/28/20 11/27/20 11/27/20 05:00 16:20 14:26 WBC RBC Hgb Hct MCV MCH MCHC RDW Plt Count MPV Neut % (Auto) Lymph % (Auto) Atlantic % (Auto) Eos % (Auto) Baso % (Auto) Neut # (Auto) Lymph # (Auto) [place] # (Auto) Eos # (Auto) Baso # (Auto) Nucleated RBC % (a uto) Nucleated RBCs # Sodium 140 Potassium 3.3 L Chloride 104 Carbon Dioxide 25 Anion Gap 14.3 BUN 9 Creatinine 0.6 GFR Calculation 105.8 Glucose 108 Calculated Osmolal ity 289 Calcium 10.0 Total Bilirubin 0.4 AST 22 ALT 25 Alkaline Phosphata se 133 H Total Protein 7.5 Albumin 4.6 Globulin 2.9 Urine Color Yellow Urine Appearance Clear Urine pH 6 Ur Specific Gravit y 1.005 Urine Protein Neg Urine Glucose (UA) Norm Urine Ketones Negative Urine Blood Neg Urine Nitrate Negative Urine Bilirubin Neg Urine Urobilinogen Norm Ur Leukocyte Deja ase Negative Urine HCG, Qual Nasal/Oral COVID-1 9 PCR Pending Vitals: Last Vital Signs Temp 99.2 F 11/28/20 14:35 Pulse 85 11/28/20 14:35 Resp 18 11/28/20 14:35 BP 102/72 11/28/20 14:35 Pulse Ox 94 11/28/20 14:35 Discharge Plan Discharge Patient Disposition: Home Condition: Stable Prescriptions: New acetaminophen 325 mg Tablet 650 mg PO Q6H PRN (Reason: Mild/Mod Pain Or Temp >/= 101) Qty: 30 RF: 0 aspirin 325 mg tablet 325 mg PO DAILY Qty: 10 RF: 0 Continued buspirone 10 mg tablet See Rx Instructions .ROUTE .COMPLEX RF: 0 lisinopril 10 mg tablet 10 mg PO DAILY@0700 RF: 0 zafirlukast 20 mg tablet 20 mg PO BID@0700,1900 RF: 0 ProAir HFA 90 mcg/actuation HFA aerosol inhaler 2 puff INHALATION Q6H PRN (Reason: Shortness Of Breath) RF: 0 hydrochlorothiazide 12.5 mg tablet 12.5 mg PO DAILY@0700 RF: 0 Symbicort 160-4.5 mcg/actuation HFA aerosol inhaler 2 puff INHALATION Q12H RF: 0 Discharge Orders: Discharge Order (Routine); Ordered 11/28/20 Ordered By: Vini Carbajal Referrals: Kolby Moreira DO [Physician] - 2 weeks Karly Briscoe MD [Primary Care Provider] - 4-7 days Discharge Diet: Cardiac Discharge Activity: Increase activity as tolerated, Limit activity as instructed and As per PT/OT instructions Patient Instructions: Bone Densitometry (GEN), Fall Prevention (GEN) Activity Restrictions/Additional Instructions: Strict fall precautions. Maintain dressing in place until appointment with orthopedics. Discuss with your primary care doctor regarding bone mineral density testing. Discharge Attestations Time Spent in Discharge Care*: greater than 30 min Quality Metrics Clinical Quality Measures During this hospital stay, did patient experience: None Coding Level of Care Code Acute Guitar Teacher for Chg Fwd Diagnoses Subcapital fracture of left hip S72.012A Asthma J45.909 HTN (hypertension) I10
[2020-11-28] MEDS: clindamycin 600 MG/50 ML PREMIX 100 MG IV (15:08)
--- NOTE | 2020-11-28 15:15 | PC.NURSE ---
ponce catheter removed per doctors orders, patient due to void prior to discharge, verbalizes understanding.
--- NOTE | 2020-11-28 16:18 | PC.OT ---
OT NOTE: OT EVALUATION ORDERS RECEIVED. PER P.T. AND PATIENT , THE PATIENT HAS NO DIFFICULTIES OR CONCERNS WITH ADL PERFORMANCE. SHE REPORTS THAT SHE WAS ABLE TO DON HER OWN PANTS EARLIER. NO FURTHER SKILLED OT REQUIRED.
--- NOTE | 2020-11-28 18:41 | PC.NURSE ---
discussed discharge paperwork, verbalized understanding, home medications returned to patient, patient belongings returned to patient including dentures, cell phone and leaf fat scraper.
[2020-11-30 13:44] LABS: Coronavirus Test Green County Not Detected
== END 2020-11-28 18:43 | disposition home or self-care (01) | DRG 482 ==
LOC: ER 14:46 → MEDSURG 16:14
PROVIDERS: Anesthesiology; Orthopaedic Surgery; Admitting Provider Internal Medicine; Emergency Provider Family Medicine; PCP Family Medicine; Visit Provider Internal Medicine
PROC: 0QH734Z Insertion of Internal Fixation Device into Left Upper Femur, Percutaneous Approach (ICD-10-PCS; CPT 27236; principal; 2020-11-28 07:00)
DX: S72.012A Unspecified intracapsular fracture of left femur, initial encounter for closed fracture (principal); W01.0XXA Fall on same level from slipping, tripping and stumbling without subsequent striking against object, initial encounter; J45.909 Unspecified asthma, uncomplicated; I10 Essential (primary) hypertension; Z79.51 Long term (current) use of inhaled steroids
CPT/HCPCS: 36415; 51702; 71045; 73502; 73552; 73562; 76000; 80053; 81003; 84703; 85025; 87635; 93005; 94640; 94664; 96365; 96374; 96375; 97110; 97116; 97161; 99285; C1713; J0690; J1885; J2250; J2270; J2370; J2405; J2704; J3490; J7030

== ENCOUNTER → 2020-12-12 08:46 | Outpatient (BNVA) | payer BC, SELFPAY | PROVIDERS: PCP Family Medicine; Visit Provider Orthopaedic Surgery | DX: S72.012A Unspecified intracapsular fracture of left femur, initial encounter for closed fracture (principal); X58.XXXA Exposure to other specified factors, initial encounter | CPT/HCPCS: 73502 ==

== ENCOUNTER 2020-12-26 15:30 | Outpatient (CLI) | payer BC, SELFPAY ==
--- NOTE | 2020-12-26 15:52 | XR_ITS ---
WS: [id number] Bone mineral density performed on a [employer], 12/26/2020 Clinical data: HISTORY OF HIP FRACTURE Findings: The first 4 lumbar vertebral bodies demonstrated the bone mineral density of 1.095 g/cm2 for a young adult T score of -0.7. Measurement of the right hip reveals the bone mineral density of 0.800 g/sq cm for young adult T scor e of -1.7. XR/XR DEXA axial skeleton* [id number] Impression: 1. Normal bone mineral density of the lumbar spine. 2. Osteopenia of the right hip.
== END 2020-12-26 15:31 | disposition home or self-care (01) ==
LOC: RADWPI 15:35
PROVIDERS: PCP Family Medicine; Visit Provider Family Medicine
DX: Z87.81 Personal history of (healed) traumatic fracture (principal); M85.88 Other specified disorders of bone density and structure, other site
CPT/HCPCS: 77080

== ENCOUNTER → 2021-01-09 08:48 | Outpatient (BNVA) | payer BC, SELFPAY | PROVIDERS: PCP Family Medicine; Visit Provider Orthopaedic Surgery | DX: S72.012A Unspecified intracapsular fracture of left femur, initial encounter for closed fracture (principal); X58.XXXA Exposure to other specified factors, initial encounter | CPT/HCPCS: 73502 ==

== ENCOUNTER → 2021-02-19 09:23 | Outpatient (BNVA) | payer BC, SELFPAY | PROVIDERS: PCP Family Medicine; Visit Provider Orthopaedic Surgery | DX: S72.012A Unspecified intracapsular fracture of left femur, initial encounter for closed fracture (principal); Z48.89 Encounter for other specified surgical aftercare; X58.XXXA Exposure to other specified factors, initial encounter | CPT/HCPCS: 73502 ==

== ENCOUNTER 2023-02-09 08:27 | Outpatient (CLI) | payer OTHER, SELFPAY ==
--- NOTE | 2023-02-09 08:35 | MM_ITS ---
WS: [id number] Bilateral screening 3D tomosynthesis digital mammogram, 02/09/2023 Clinical Data: SCREENING Comparison: 09/14/2021, 02/15/2019, 01/25/2018, 02/18/2016, 02/10/2015, 02/06/2014, 01/17/2013, 12/08/2011, 11/10. Findings: The breast parenchymal pattern shows heterogeneous density. No spiculated masses or clustered calcifi cations are seen. There are no secondary signs of carcinoma. MM/[place] [id number] Impression: 1. Negative bilateral mammogram unchanged. 2. Recommend annual screening mammograms. BIRADS: 1-Negative FOLLOW UP: 1 Year Follow-up The CAD plan checker was used.
== END 2023-02-09 08:28 | disposition home or self-care (01) ==
PROVIDERS: PCP Family Medicine; Visit Provider Family Medicine
DX: Z12.31 Encounter for screening mammogram for malignant neoplasm of breast (principal)
CPT/HCPCS: 77063; 77067

== ENCOUNTER 2025-01-30 08:13 | Outpatient (CLI) | payer OTHER, SELFPAY ==
--- NOTE | 2025-01-30 08:21 | MM_ITS ---
WS: [id number] VIEWS: MLO and CC views both breasts. 3D digital tomosynthesis is also included in this exam. Comparison made with prior exam of 01/25/2018, 02/09/2023, 11/23/2010, 12/08/2011, 01/17/2013, 02/06/2014, 02/10/2015, 02/18/2016, 02/15/2019, 11/15/2020,. Findings: The breasts are extremely dense, which lowers the sensitivity of mammography. No sign of suspicious mass, tumor calcification or architectural distortion. MM/MM scr BI tomosynthesis [id number] Impression: BI-RADS: 2 - Benign FOLLOW-UP: 1 Year Follow-up This mammogram was also analyzed by the Computer Aided Detection System R2 Imag e Electric Appliance Installer.
== END 2025-01-30 08:14 | disposition home or self-care (01) ==
LOC: RAD 08:16
PROVIDERS: PCP Family Medicine; Visit Provider Family Medicine
DX: Z12.31 Encounter for screening mammogram for malignant neoplasm of breast (principal); R92.343 Mammographic extreme density, bilateral breasts
CPT/HCPCS: 77063; 77067